=== PATIENT | female | born 1960 | race Hispanic/Latino ===

== ENCOUNTER 2018-12-23 12:44 | Outpatient (CLI) | payer BC ==
--- NOTE | 2018-12-23 15:46 | MRI ---
MRI LUMBAR SPINE WITHOUT CONTRAST: HISTORY: M54.5, low back pain. M51.36, lumbar degenerative disk disease. COMPARISON: None. FINDINGS: The aortic contour is nonaneurysmal. No retroperitoneal adenopathy. No hydronephrosis. The paraspi nal musculature is symmetric. The conus medullaris terminates near the superior endplate of L1. Hemangiomas are present in the L1 vertebral body. Levels are as follows: L1-L2: Low-grade circumferential disk bulge. Mild facet arthrosis. No significant neural foraminal narrowing. L2-L3: Low-grade circumferential disk osteophyte complex. Moderate facet arthropathy with hypertrop hic osteophyte formation. the hypertrophic osteophyte on the left causes moderate left-sided neural foraminal narrowing. Mild right-sided neural foraminal narrowing. There is 1 mm of anterolisthesis. The spinal canal is not significantly narrowed. L3-L4: Moderate to severe left and moderate right-sided facet arthropathy. Very small bilateral sub foraminal disk osteophyte complexes. Moderate left and mild right-sided neural foraminal narrowing w ith abutment of the left exiting nerve root. L4-L5: Mild disk desiccation. Modic type I endplate changes. There is a circumferential disk bulge , greatest in the subforaminal zones. Moderate facet arthrosis. Abutment of both exiting nerve root s. Moderate right and mild left-sided neural foraminal narrowing. L5-S1: Mild disk desiccation. There is a small central posterior disk osteophyte complex. No signi ficant neural foraminal or spinal canal narrowing. IMPRESSION: Multilevel spondylosis, as described. POS: ADAN
== END 2018-12-23 12:45 | disposition home or self-care (01) ==
LOC: TBSIIMAG 12:44
PROVIDERS: ATTEND Neurological Surgery
DX: M51.36 Other intervertebral disc degeneration, lumbar region (principal); M47.816 Spondylosis without myelopathy or radiculopathy, lumbar region
CPT/HCPCS: 72148

== ENCOUNTER 2019-03-13 12:35 | Outpatient (CLI) | payer BC ==
--- NOTE | 2019-03-14 07:50 | MMO ---
Bilateral MAMMO Bilat Screen [facility]. CLINICAL HISTORY: Patient is 59 years old and is seen for screening. The patient has no family history of breast cancer. The patient has no personal history of cancer. The patient has a history of bilateral Implants in 30 YRS AGO - SALINE. VIEWS: The views performed were: bilateral craniocaudal with tomosynthesis and bilateral mediolateral oblique with tomosynthesis. FILMS COMPARED: The present examination has been compared to prior imaging studies performed at [facility] on 04/27/2003, 06/10/2010, 09/12/2011 and 07/06/2015. MAMMOGRAM FINDINGS: There are scattered fibroglandular densities. There are no suspicious masses, suspicious calcifications, or new areas of architectural distortion. IMPRESSION: THERE IS NO MAMMOGRAPHIC EVIDENCE OF MALIGNANCY. A ROUTINE FOLLOW-UP MAMMOGRAM IN 1 YEAR IS RECOMMENDED. THE RESULTS OF THIS EXAM WERE SENT TO THE PATIENT. ACR BI-RADS Category 1 - Negative MAMMOGRAPHY NOTE: 1. A negative mammogram report should not delay a biopsy if a dominant of clinically suspicious mass is present. 2. Approximately 10% to 15% of breast cancers are not detected by mammography. 3. Adenosis and dense breasts may obscure an underlying neoplasm.
== END 2019-03-13 12:36 | disposition home or self-care (01) ==
LOC: BICMAMMO 12:35
PROVIDERS: ATTEND Family Medicine
DX: Z12.31 Encounter for screening mammogram for malignant neoplasm of breast (principal); Z98.82 Breast implant status
CPT/HCPCS: 77063; 77067